=== PATIENT | female | born 1985 | race American Indian/Alaskan Native ===

== ENCOUNTER 2020-10-19 19:01 | Observation (INO) | payer SELFPAY ==
--- NOTE | 2020-10-19 19:43 | Emergency Department Report ---
ED General Adult HPI - General Chief complaint: Seizure Stated complaint: SZ PUI?: No Time Seen by Provider: 10/19/20 19:38 Source: patient, EMS (EMS documentation reviewed and appreciated), RN notes reviewed Mode of arrival: Stretcher Limitations: No Limitations - History of Present Illness Initial comments: During the history and physical examination, I am chaperoned by Ms. Fabiola Powers. The patient is a 34-year-old female. She has a history of lupus. She typically follows at [facility]. She presents to the ER today with a possible seizure. She has never had a seizure before. She reports that she started a new antibiotic treatment on September 27 for her lupus, believes that it starts with a "R", but does not recall the name of this medication specifically. She has received her Covid vaccine. She reports that today, she was starting to feel left hand and arm numbness, and twisting. Then, she blacked out. She has no recollection of the event afterwards. She has a mild headache. There is no neck pain. There is no chest pain, abdominal pain, shortness of breath, vomiting or diarrhea. No urinary symptoms. Positive nausea. No recreational drug use. She feels like she is back to her baseline. She was previously maintained on Plaquenil but not currently. Decides this no antibody treatment, whose name she cannot recall, she denies additional medications. -: Sudden Location: left, upper extremity Radiation: non-radiation Consistency: now resolved Improves with: none Worsens with: none - Related Data Home Medications Medication Instructions Recorded Confirmed Last Taken Omeprazole 40 mg PO BID 10/19/20 10/19/20 1 Day Ago ~10/18/20 Rituxan 1 1000units IV 3XW MDD pain relief 10/19/20 10/19/20 Unknown amLODIPine [Norvasc] 5 mg PO DAILY 10/19/20 10/19/20 10/19/20 07:00 5 mg azaTHIOprine [Azathioprine] 50 mg PO DAILY 10/19/20 10/19/20 10/19/20 07:00 predniSONE 10 mg PO QDAY 10/19/20 10/19/20 10/19/20 07:00 Allergies Allergy/AdvReac Type Severity Reaction Status Date / Time No Known Allergies Allergy Verified 10/19/20 19:57 ED Review of Systems ROS: Stated complaint: SZ Other details as noted in HPI Constitutional: denies: fever, malaise, weakness Eyes: denies: eye discharge, vision change ENT: denies: epistaxis Respiratory: denies: cough Cardiovascular: denies: chest pain Gastrointestinal: nausea. denies: abdominal pain Genitourinary: denies: dysuria Neurological: headache, numbness. denies: weakness Hematological/Lymphatic: denies: easy bleeding ED Past Medical Hx - Past Medical History Previous Medical History?: Yes Hx Arthritis: Yes Additional medical history: Lupus - Surgical History Past Surgical History?: No - Social History Smoking Status: Never Smoker Substance Use Type: None - Medications Home Medications: Home Medications Medication Instructions Recorded Confirmed Last Taken Type Omeprazole 40 mg PO BID 10/19/20 10/19/20 1 Day Ago History ~10/18/20 Rituxan 1 1000units IV 3XW MDD pain relief 10/19/20 10/19/20 Unknown History amLODIPine [Norvasc] 5 mg PO DAILY 10/19/20 10/19/20 10/19/20 07:00 History 5 mg azaTHIOprine [Azathioprine] 50 mg PO DAILY 10/19/20 10/19/20 10/19/20 07:00 History predniSONE 10 mg PO QDAY 10/19/20 10/19/20 10/19/20 07:00 History ED Physical Exam - General Limitations: No Limitations General appearance: alert, in no apparent distress - Head Head exam: Present: atraumatic, normocephalic - Eye Eye exam: Present: normal appearance, PERRL, EOMI, other (Visual acuity intact to finger counting, color perception, reading at a close distance) - ENT ENT exam: Present: normal exam, normal orophraynx, mucous membranes moist, normal external ear exam - Neck Neck exam: Present: normal inspection, full ROM. Absent: tenderness, meningismus - Respiratory Respiratory exam: Present: normal lung sounds bilaterally. Absent: respiratory distress, wheezes, rales, rhonchi, stridor, decreased breath sounds - Cardiovascular Cardiovascular Exam: Present: regular rate, normal rhythm, normal heart sounds. Absent: bradycardia, tachycardia, irregular rhythm, systolic murmur, diastolic murmur, rubs, gallop - GI/Abdominal GI/Abdominal exam: Present: soft. Absent: distended, tenderness, guarding, pulsatile mass - Extremities Exam Extremities exam: Present: normal inspection, full ROM, other (2+ pulses noted in the bilateral upper and lower extremities. There is no palpable cord. negative Homans sign. Muscular compartments are soft. The pelvis is stable.). Absent: pedal edema, calf tenderness - Back Exam Back exam: Present: normal inspection. Absent: tenderness, CVA tenderness (R), CVA tenderness (L), paraspinal tenderness, vertebral tenderness - Neurological Exam Neurological exam: Present: alert (There is no past-pointing. There is normal [id number]. There is no pronator drift.), oriented X3, other (No facial droop. Tongue midline. Extraocular movements intact bilaterally. Facial sensation intact to light touch in V1, V2, V3 distribution bilaterally. 5 and a 5 strength in 4 extremities. Sensation intact to light touch in 4 extremitie s.). Absent: motor sensory deficit - Psychiatric Psychiatric exam: Present: normal affect, normal mood - Skin Skin exam: Present: warm, dry, intact, normal color. Absent: rash ED Course Vital Signs 10/19/20 10/19/20 10/19/20 19:36 19:42 20:31 Temperature 99.2 F 99.2 F Pulse Rate 112 H Respiratory 20 20 Rate Blood Pressure 115/55 [Left] O2 Sat by Pulse 99 Oximetry 10/19/20 21:23 Temperature Pulse Rate 86 Respiratory 16 Rate Blood Pressure 110/62 [Left] O2 Sat by Pulse 99 Oximetry - Reevaluation(s) Reevaluation #1: 10/19/20 21:41 Differential diagnosis, including but not limited to: Seizure, TIA, sinus thrombosis, pneumonia, urinary tract infection, viral syndrome, pharyngitis Medication side effect Assessment and plan: 34-year-old female with new onset left upper extremity weakness, numbness, now resolved, and possible seizure. Patient is clinically sober at this time, with a GCS of 15, NIH score of 0, with no meningeal signs. She is awake, alert, oriented. Physical exam nondiagnostic and unremarkable. She is never had a seizure before. I requested that nursing team reconcile home medications. Obtain noncontrast CT scan of the brain, x-ray the chest, urinalysis, rapid flu and rapid strep. States she is up-to-date with COVID-19 vaccination. Obtain neurology consultation. Given NIH score of 0, GCS of 15, large vessel occlusion is very unlikely, emergent CT angiogram head and neck not indicated. Given NIH score of 0, TPA not necessary, patient back to her neurologic baseline. Hold systemic anticoagulation and AED/anticonvulsants at this time. I have discussed the patient's history, physical, laboratory studies, imaging studies, and overall clinical impression with neurology on-call, Dr. Arelis Bowen Urgent inpatient MRI brain, with and without contrast, routine EEG, inpatient work-up recommended, he is in agreement with the plan of care. I have discussed the plan of care with the patient, who has articulated understanding, and who is amenable to this plan of care. Admit this patient to the medical service once initial diagnostics have resulted. No meningeal signs, not encephalopathic, lupus cerebritis, encephalitis is very unlikely. 10/19/20 21:45 10/19/20 22:22 lab studies essentially unremarkable. CT scan of the brain nonspecific. No obvious bleed is noted. Patient to be admitted to the medical service under the care of Durga Maya, working with Dr Vishnu Mari ED Medical Decision Making - Lab Data Result diagrams: 10/19/20 19:51 10/19/20 19:51 Vital Signs 10/19/20 10/19/20 10/19/20 19:36 19:42 20:31 Temperature 99.2 F 99.2 F Pulse Rate 112 H Respiratory 20 20 Rate Blood Pressure 115/55 [Left] O2 Sat by Pulse 99 Oximetry 10/19/20 21:23 Temperature Pulse Rate 86 Respiratory 16 Rate Blood Pressure 110/62 [Left] O2 Sat by Pulse 99 Oximetry Lab Results 10/19/20 10/19/20 10/19/20 Range/Units 19:51 19:51 19:51 WBC 7.2 (4.5-11.0) K/mm3 RBC 3.86 (3.65-5.03) M/mm3 Hgb 10.1 (10.1-14.3) gm/dl Hct 32.4 (30.3-42.9) % MCV 84 (79-97) fl MCH 26 L (28-32) pg MCHC 31 (30-34) % RDW 18.1 H (13.2-15.2) % Plt Count 475 H (140-440) K/mm3 Lymph % (Auto) 4.1 L (13.4-35.0) % [place] % (Auto) 4.7 (0.0-7.3) % Eos % (Auto) 2.8 (0.0-4.3) % Baso % (Auto) 1.2 (0.0-1.8) % Lymph # (Auto) 0.3 L (1.2-5.4) K/mm3 [place] # (Auto) 0.3 (0.0-0.8) K/mm3 Eos # (Auto) 0.2 (0.0-0.4) K/mm3 Baso # (Auto) 0.1 (0.0-0.1) K/mm3 Seg Neutrophils % 87.2 H (40.0-70.0) % Seg Neutrophils # 6.3 (1.8-7.7) K/mm3 PT 13.8 (12.2-14.9) Sec. INR 1.01 (0.87-1.13) Sodium 136 L (137-145) mmol/L Potassium 4.2 (3.6-5.0) mmol/L Chloride 100.2 (98-107) mmol/L Carbon Dioxide 25 (22-30) mmol/L Anion Gap 15 mmol/L BUN 9 (7-17) mg/dL Creatinine 0.6 (0.6-1.2) mg/dL Estimated GFR > 60 ml/min BUN/Creatinine Ratio 15 % Glucose 72 (65-100) mg/dL Calcium 8.6 (8.4-10.2) mg/dL Magnesium (1.7-2.3) mg/dL Total Bilirubin 0.20 (0.1-1.2) mg/dL AST 37 (5-40) units/L ALT 10 (7-56) units/L Alkaline Phosphatase 63 (35-129) units/L Total Creatine Kinase (30-135) units/L Total Protein 7.2 (6.3-8.2) g/dL Albumin 3.3 L (3.9-5) g/dL Albumin/Globulin Ratio 0.8 % HCG, Quant (0-4) mIU/mL Urine Color (Yellow) Urine Turbidity (Clear) Urine pH (5.0-7.0) Ur Specific [place] (1.003-1.030) Urine Protein (Negative) mg/dL Urine Glucose (UA) (Negative) mg/dL Urine Ketones (Negative) mg/dL Urine Blood (Negative) Urine Nitrite (Negative) Urine Bilirubin (Negative) Urine Urobilinogen (<2.0) mg/dL Ur Leukocyte Esterase (Negative) Urine WBC (Auto) (0.0-6.0) /HPF Urine RBC (Auto) (0.0-6.0) /HPF U Epithel Cells (Auto) (0-13.0) /HPF Urine Mucus /HPF Salicylates (2.8-20.0) mg/dL Urine Opiates Screen Urine Methadone Screen Acetaminophen (10.0-30.0) ug/mL Ur Barbiturates Screen Ur Phencyclidine Scrn Ur Amphetamines Screen U Benzodiazepines Scrn Urine Cocaine Screen U Marijuana (THC) Screen Plasma/Serum Alcohol (0-0.07) % 10/19/20 10/19/20 10/19/20 Range/Units 19:51 19:51 19:51 WBC (4.5-11.0) K/mm3 RBC (3.65-5.03) M/mm3 Hgb (10.1-14.3) gm/dl Hct (30.3-42.9) % MCV (79-97) fl MCH (28-32) pg MCHC (30-34) % RDW (13.2-15.2) % Plt Count (140-440) K/mm3 Lymph % (Auto) (13.4-35.0) % [place] % (Auto) (0.0-7.3) % Eos % (Auto) (0.0-4.3) % Baso % (Auto) (0.0-1.8) % Lymph # (Auto) (1.2-5.4) K/mm3 [place] # (Auto) (0.0-0.8) K/mm3 Eos # (Auto) (0.0-0.4) K/mm3 Baso # (Auto) (0.0-0.1) K/mm3 Seg Neutrophils % (40.0-70.0) % Seg Neutrophils # (1.8-7.7) K/mm3 PT (12.2-14.9) Sec. INR (0.87-1.13) Sodium (137-145) mmol/L Potassium (3.6-5.0) mmol/L Chloride (98-107) mmol/L Carbon Dioxide (22-30) mmol/L Anion Gap mmol/L BUN (7-17) mg/dL Creatinine (0.6-1.2) mg/dL Estimated GFR ml/min BUN/Creatinine Ratio % Glucose (65-100) mg/dL Calcium (8.4-10.2) mg/dL Magnesium 2.00 (1.7-2.3) mg/dL Total Bilirubin (0.1-1.2) mg/dL AST (5-40) units/L ALT (7-56) units/L Alkaline Phosphatase (35-129) units/L Total Creatine Kinase 133 (30-135) units/L Total Protein (6.3-8.2) g/dL Albumin (3.9-5) g/dL Albumin/Globulin Ratio % HCG, Quant < 2 (0-4) mIU/mL Urine Color (Yellow) Urine Turbidity (Clear) Urine pH (5.0-7.0) Ur Specific [place] (1.003-1.030) Urine Protein (Negative) mg/dL Urine Glucose (UA) (Negative) mg/dL Urine Ketones (Negative) mg/dL Urine Blood (Negative) Urine Nitrite (Negative) Urine Bilirubin (Negative) Urine Urobilinogen (<2.0) mg/dL Ur Leukocyte Esterase (Negative) Urine WBC (Auto) (0.0-6.0) /HPF Urine RBC (Auto) (0.0-6.0) /HPF U Epithel Cells (Auto) (0-13.0) /HPF Urine Mucus /HPF Salicylates < 0.3 L (2.8-20.0) mg/dL Urine Opiates Screen Urine Methadone Screen Acetaminophen (10.0-30.0) ug/mL Ur Barbiturates Screen Ur Phencyclidine Scrn Ur Amphetamines Screen U Benzodiazepines Scrn Urine Cocaine Screen U Marijuana (THC) Screen Plasma/Serum Alcohol (0-0.07) % 10/19/20 10/19/20 10/19/20 Range/Units 19:51 19:51 Unknown WBC (4.5-11.0) K/mm3 RBC (3.65-5.03) M/mm3 Hgb (10.1-14.3) gm/dl Hct (30.3-42.9) % MCV (79-97) fl MCH (28-32) pg MCHC (30-34) % RDW (13.2-15.2) % Plt Count (140-440) K/mm3 Lymph % (Auto) (13.4-35.0) % [place] % (Auto) (0.0-7.3) % Eos % (Auto) (0.0-4.3) % Baso % (Auto) (0.0-1.8) % Lymph # (Auto) (1.2-5.4) K/mm3 [place] # (Auto) (0.0-0.8) K/mm3 Eos # (Auto) (0.0-0.4) K/mm3 Baso # (Auto) (0.0-0.1) K/mm3 Seg Neutrophils % (40.0-70.0) % Seg Neutrophils # (1.8-7.7) K/mm3 PT (12.2-14.9) Sec. INR (0.87-1.13) Sodium (137-145) mmol/L Potassium (3.6-5.0) mmol/L Chloride (98-107) mmol/L Carbon Dioxide (22-30) mmol/L Anion Gap mmol/L BUN (7-17) mg/dL Creatinine (0.6-1.2) mg/dL Estimated GFR ml/min BUN/Creatinine Ratio % Glucose (65-100) mg/dL Calcium (8.4-10.2) mg/dL Magnesium (1.7-2.3) mg/dL Total Bilirubin (0.1-1.2) mg/dL AST (5-40) units/L ALT (7-56) units/L Alkaline Phosphatase (35-129) units/L Total Creatine Kinase (30-135) units/L Total Protein (6.3-8.2) g/dL Albumin (3.9-5) g/dL Albumin/Globulin Ratio % HCG, Quant (0-4) mIU/mL Urine Color Yellow (Yellow) Urine Turbidity Hazy (Clear) Urine pH 5.0 (5.0-7.0) Ur Specific [place] 1.021 (1.003-1.030) Urine Protein 100 mg/dl (Negative) mg/dL Urine Glucose (UA) Neg (Negative) mg/dL Urine Ketones Neg (Negative) mg/dL Urine Blood Neg (Negative) Urine Nitrite Neg (Negative) Urine Bilirubin Neg (Negative) Urine Urobilinogen 4.0 (<2.0) mg/dL Ur Leukocyte Esterase Neg (Negative) Urine WBC (Auto) 5.0 (0.0-6.0) /HPF Urine RBC (Auto) 4.0 (0.0-6.0) /HPF U Epithel Cells (Auto) 5.0 (0-13.0) /HPF Urine Mucus 3+ /HPF Salicylates (2.8-20.0) mg/dL Urine Opiates Screen Urine Methadone Screen Acetaminophen 5.0 L (10.0-30.0) ug/mL Ur Barbiturates Screen Ur Phencyclidine Scrn Ur Amphetamines Screen U Benzodiazepines Scrn Urine Cocaine Screen U Marijuana (THC) Screen Plasma/Serum Alcohol < 0.01 (0-0.07) % 10/19/20 Range/Units Unknown WBC (4.5-11.0) K/mm3 RBC (3.65-5.03) M/mm3 Hgb (10.1-14.3) gm/dl Hct (30.3-42.9) % MCV (79-97) fl MCH (28-32) pg MCHC (30-34) % RDW (13.2-15.2) % Plt Count (140-440) K/mm3 Lymph % (Auto) (13.4-35.0) % [place] % (Auto) (0.0-7.3) % Eos % (Auto) (0.0-4.3) % Baso % (Auto) (0.0-1.8) % Lymph # (Auto) (1.2-5.4) K/mm3 [place] # (Auto) (0.0-0.8) K/mm3 Eos # (Auto) (0.0-0.4) K/mm3 Baso # (Auto) (0.0-0.1) K/mm3 Seg Neutrophils % (40.0-70.0) % Seg Neutrophils # (1.8-7.7) K/mm3 PT (12.2-14.9) Sec. INR (0.87-1.13) Sodium (137-145) mmol/L Potassium (3.6-5.0) mmol/L Chloride (98-107) mmol/L Carbon Dioxide (22-30) mmol/L Anion Gap mmol/L BUN (7-17) mg/dL Creatinine (0.6-1.2) mg/dL Estimated GFR ml/min BUN/Creatinine Ratio % Glucose (65-100) mg/dL Calcium (8.4-10.2) mg/dL Magnesium (1.7-2.3) mg/dL Total Bilirubin (0.1-1.2) mg/dL AST (5-40) units/L ALT (7-56) units/L Alkaline Phosphatase (35-129) units/L Total Creatine Kinase (30-135) units/L Total Protein (6.3-8.2) g/dL Albumin (3.9-5) g/dL Albumin/Globulin Ratio % HCG, Quant (0-4) mIU/mL Urine Color (Yellow) Urine Turbidity (Clear) Urine pH (5.0-7.0) Ur Specific [place] (1.003-1.030) Urine Protein (Negative) mg/dL Urine Glucose (UA) (Negative) mg/dL Urine Ketones (Negative) mg/dL Urine Blood (Negative) Urine Nitrite (Negative) Urine Bilirubin (Negative) Urine Urobilinogen (<2.0) mg/dL Ur Leukocyte Esterase (Negative) Urine WBC (Auto) (0.0-6.0) /HPF Urine RBC (Auto) (0.0-6.0) /HPF U Epithel Cells (Auto) (0-13.0) /HPF Urine Mucus /HPF Salicylates (2.8-20.0) mg/dL Urine Opiates Screen Negative Urine Methadone Screen Negative Acetaminophen (10.0-30.0) ug/mL Ur Barbiturates Screen Negative Ur Phencyclidine Scrn Negative Ur Amphetamines Screen Negative U Benzodiazepines Scrn Negative Urine Cocaine Screen Negative U Marijuana (THC) Screen Negative Plasma/Serum Alcohol (0-0.07) % - EKG Data -: EKG Interpreted by Mo EKG shows normal: sinus rhythm Rate: normal - EKG Data 10/19/20 21:40 The EKG today is interpreted at 20: 59 Sinus rhythm, 89 bpm. Normal axis, normal intervals, borderline poor R wave progression. Abnormal EKG. Not a STEMI. There is no prior for comparison. This EKG is not a STEMI. - Radiology Data Radiology results: pending, report reviewed, image reviewed CT head/brain wo con INDICATION: Lupus, first lifetime seizure vs convulsion. TECHNIQUE: Routine CT head. All CT scans at this location are performed using CT dose reduction for ALARA by means of automated exposure control. COMPARISON: None. FINDINGS: Intracranial: Small region of hypoattenuation seen in the right frontal lobe on image 24 series 2. There appears to be associated [place]- white matter differentiation loss such as sagittal image 17 of series 602. No intracranial hemorrhage. No extra axial collection. No hydrocephalus. No herniation. Sinuses: Paranasal sinuses and mastoid air cells are essentially clear. Orbits: Globes are intact. Calvarium: No acute fracture. IMPRESSION: 1. Nonspecific region of hypoattenuation in the right frontal lobe which is favored to represent an acute infarction given patient's history of lupus. Recommend MRI with and without contrast for further evaluation. I informed Dr. Bray at 9:10 Signer Name: Jeronimo Liriano MD Signed: 10/19/2020 9:14 PM Workstation Name: [id number] Critical care attestation.: If time is entered above; I have spent that time in minutes in the direct care of this critically ill patient, excluding procedure time. ED Disposition Clinical Impression: History of lupus, History of convulsions Disposition: OP ADMIT IP TO THIS HOSP Is pt being admited?: Yes Does the pt Need Aspirin: No Condition: Stable Referrals: PRIMARY CARE, [Primary Care Provider] - 3-5 Days
[2020-10-19] MEDS ORDERED: LACTATED RINGERS 1,000 ML IV ONE (20:03)
[2020-10-19] MEDS ORDERED: METOCLOPRAMIDE 10 MG/2 ML INJ IV ONE (20:03)
[2020-10-19] MEDS ORDERED: diphenhydrAMINE 50 MG/ML VIAL IV ONE (20:03)
[2020-10-19] MEDS ORDERED: ACETAMINOPHEN 500 MG TAB PO ONE (20:03)
[2020-10-19 20:43] LABS: Bilirubin,Urine NEG (Negative); Blood,Urine NEG (Negative); Color,Urine Yellow (Yellow); Mucus,Urine 3+ /HPF
[2020-10-19 20:50] LABS: Basophils # (Auto) 0.1 K/mm3 (0.0-0.1); Basophils % (Auto) 1.2 % (0.0-1.8); Eosinophils # (Auto) 0.2 K/mm3 (0.0-0.4); Eosinophils % (Auto) 2.8 % (0.0-4.3); Hematocrit 32.4 % (30.3-42.9); Hemoglobin 10.1 gm/dl (10.1-14.3); Lymphocytes # (Auto) 0.3 K/mm3 (1.2-5.4); Lymphocytes % (Auto) 4.1 % (13.4-35.0); Mean Corpuscular HGB Conc 31 % (30-34); Mean Corpuscular Volume 84 fl (79-97); Monocytes # (Auto) 0.3 K/mm3 (0.0-0.8); Monocytes % (Auto) 4.7 % (0.0-7.3); Platelet Count 475 K/mm3 (140-440); Red Blood Count 3.86 M/mm3 (3.65-5.03); Red Cell Distribution Width 18.1 % (13.2-15.2)
[2020-10-19 20:57] LABS: INR 1.01 (0.87-1.13)
[2020-10-19 20:58] LABS: Amphetamine Screen,Urine Negative; Benzodiazepines Screen,Urine Negative; Cannabinoid Screen,Urine Negative; Cocaine Screen,Urine Negative; Methadone Screen,Urine Negative; Opiate Screen,Urine Negative
[2020-10-19 21:12] LABS: Alanine Aminotransferase 10 units/L (7-56); Albumin 3.3 g/dL (3.9-5); Blood Urea Nitrogen 9 mg/dL (7-17); Calcium 8.6 mg/dL (8.4-10.2); Hemolysis Index 6
[2020-10-19 21:18] LABS: BUN/Creatinine Ratio 15
--- NOTE | 2020-10-19 22:10 | Consultation ---
History of Present Illness History of present illness: [facility] Consult Note # Demographics Consult Type: General Neurology Patient Location: Emergency Room First Name: Radha Last Name: Sushant Date of : 1985 Age: 34 Gender: Female Time of Initial Page (Eastern Time): 10/19/2020, 21:39 Time of Return Call ( Time): 10/19/2020, 21:42 # HPI History: 34 year-old female presents with a new onset seizure. Afterward, she had numbness and weakness in her left arm that resolved prior to arrival. # Exam Vitals: vital signs reviewed # [id number]-SH Past Medical History: lupus # Assessment Impression: New onset seizure with transient left arm weakness and numbness # Plan Imaging: (urgency: STAT): CT Head without contrast Imaging: (urgency: routine): MRI Brain with AND without contrast Diagnostic Test: EEG Other: telemetry monitoring seizure precautions I have discussed my recommendations with the referring provider Disposition: admit Medications and Allergies Allergies Allergy/AdvReac Type Severity Reaction Status Date / Time No Known Allergies Allergy Verified 10/19/20 19:57 Home Medications Medication Instructions Recorded Confirmed Last Taken Type Omeprazole 40 mg PO BID 10/19/20 10/19/20 1 Day Ago History ~10/18/20 Rituxan 1 1000units IV 3XW MDD pain relief 10/19/20 10/19/20 Unknown History amLODIPine [Norvasc] 5 mg PO DAILY 10/19/20 10/19/20 10/19/20 07:00 History 5 mg azaTHIOprine [Azathioprine] 50 mg PO DAILY 10/19/20 10/19/20 10/19/20 07:00 History predniSONE 10 mg PO QDAY 10/19/20 10/19/20 10/19/20 07:00 History Physical Examination - Vital Signs Vital Signs: Vital Signs Temp 99.2 F 10/19/20 19:36 Results - Laboratory Findings CBC and BMP: 10/19/20 19:51 10/19/20 19:51 Abnormal Lab Findings: Abnormal Labs 10/19/20 10/19/20 10/19/20 19:51 19:51 19:51 MCH 26 L RDW 18.1 H Plt Count 475 H Lymph % (Auto) 4.1 L Lymph # (Auto) 0.3 L Seg Neutrophils % 87.2 H Sodium 136 L Albumin 3.3 L Salicylates < 0.3 L Acetaminophen 10/19/20 19:51 MCH RDW Plt Count Lymph % (Auto) Lymph # (Auto) Seg Neutrophils % Sodium Albumin Salicylates Acetaminophen 5.0 L
--- NOTE | 2020-10-19 22:18 | Cat Scan Report ---
CT head/brain wo con INDICATION: Lupus, first lifetime seizure vs convulsion. TECHNIQUE: Routine CT head. All CT scans at this location are performed using CT dose reduction for A JORGE by means of automated exposure control. COMPARISON: None. FINDINGS: Intracranial: Small region of hypoattenuation seen in the right frontal lobe on image 24 series 2. Th ere appears to be associated [place]-white matter differentiation loss such as sagittal image 17 of seri es 602. No intracranial hemorrhage. No extra axial collection. No hydrocephalus. No herniation. Sinuses: Paranasal sinuses and mastoid air cells are essentially clear. Orbits: Globes are intact. Calvarium: No acute fracture. IMPRESSION: 1. Nonspecific region of hypoattenuation in the right frontal lobe which is favored to represent an acute infarction given patient's history of lupus. Recommend MRI with and without contrast for furthe r evaluation. I informed Dr. Bray at 9:10 Signer Name: Jeronimo Liriano MD Signed: 10/19/2020 10:14 PM Workstation Name: [id number]
[2020-10-19] MEDS ORDERED: ASPIRIN 81 MG TAB CHEW PO ONE (22:23)
[2020-10-19] MEDS ORDERED: levETIRAcetam 500 MG in DEXTROSE 5% IN WATER 100 ML IV ONE (22:23)
[2020-10-19] MEDS ORDERED: ONDANSETRON 4 MG/2 ML INJ IV PRN (22:25)
[2020-10-19] MEDS ORDERED: NALOXONE 0.4 MG/1 ML INJ IV PRN (22:25)
[2020-10-19] MEDS ORDERED: HYDROmorphone 1 MG/1 ML INJ IV PRN (22:25)
[2020-10-19] MEDS ORDERED: oxyCODONE /ACETAMINOPHEN 5-325MG TAB PO PRN (22:25)
[2020-10-19] MEDS ORDERED: ACETAMINOPHEN 325 MG TAB PO PRN (22:25)
--- NOTE | 2020-10-19 23:03 | History and Physical Report ---
History of Present Illness Date of examination: 10/19/20 Date of admission: 10/19/20 22:23 Chief complaint: Left upper extremity numbness, and weakness History of present illness: 34-year-old -Norwegian female with history of GERD, hypertension, and lupus who presents [facility] ED with complaints of left upper extremity numbness and weakness. Patient states that she was at the table preparing for dinner, when her hand felt numb and weak, was unable to move left upper extremity, followed loss of consciousness. She does not recall passing out and falling to the ground, however this was confirmed by her children. Endorses mild generalized headache, decreased appetite and nausea. Patient states she received Covid vaccine. Denies head injury/trauma, history of seizure, shortness of breath, chest pain, palpitations, peripheral edema, history of heart failure, or recent sick contacts. Past History Past Medical History: GERD, hypertension, other ([place]) Past Surgical History: (X3) Social history: single, lives with family Family history: diabetes, other (Lupus: aunt x2, cousin) Medications and Allergies Allergies Allergy/AdvReac Type Severity Reaction Status Date / Time No Known Allergies Allergy Verified 10/19/20 22:24 Home Medications Medication Instructions Recorded Confirmed Last Taken Type Omeprazole 40 mg PO BID 10/19/20 10/19/20 1 Day Ago History ~10/18/20 Rituxan 1 1000units IV 3XW MDD pain relief 10/19/20 10/19/20 Unknown History amLODIPine [Norvasc] 5 mg PO DAILY 10/19/20 10/19/20 10/19/20 07:00 History 5 mg azaTHIOprine [Azathioprine] 50 mg PO DAILY 10/19/20 10/19/20 10/19/20 07:00 History predniSONE 10 mg PO QDAY 10/19/20 10/19/20 10/19/20 07:00 History Active Meds: Active Medications Acetaminophen (Acetaminophen 325 Mg Tab) 650 mg PO Q4H PRN PRN Reason: Pain MILD(1-3)/Fever >100.5/CARTAGENA Amlodipine Besylate (Amlodipine 5 Mg Tab) 5 mg PO DAILY ROBSON Aspirin (Aspirin Ec 325 Mg Tab) 325 mg PO QDAY ROBSON Atorvastatin Calcium (Atorvastatin 40 Mg Tab) 40 mg PO QHS RO[place]ON Azathioprine (Azathioprine 50 Mg Tab) 50 mg PO DAILY ROBSON Docusate Sodium (Docusate Sodium 100 Mg Cap) 100 mg PO BID COUNT INCLUDES THE [facility] Enoxaparin Sodium (Enoxaparin 40 Mg/0.4 Ml Inj) 40 mg SUB-Q QDAY ROBSON Hydromorphone HCl (Hydromorphone 1 Mg/1 Ml Inj) 0.5 mg IV Q3H PRN PRN Reason: Pain , Severe (7-10) Levetiracetam 500 mg/ Dextrose 105 mls @ 400 mls/hr IV Q12HR ROBSON Naloxone HCl (Naloxone 0.4 Mg/1 Ml Inj) 0.1 mg IV Q2MIN PRN PRN Reason: Res Rate </= 8 or 02 SAT < 92% Ondansetron HCl (Ondansetron 4 Mg/2 Ml Inj) 4 mg IV Q6H PRN PRN Reason: Nausea And Vomiting Oxycodone/Acetaminophen (Oxycodone /Acetaminophen 5-325mg Tab) 1 tab PO Q6H PRN PRN Reason: Pain, Moderate (4-6) Pantoprazole Sodium (Pantoprazole 40 Mg Tab) 40 mg PO BID ROBSON Sodium Chloride (Sodium Chloride 0.9% 10 Ml Flush Syringe) 10 ml IV BID ROBSON Sodium Chloride (Sodium Chloride 0.9% 10 Ml Flush Syringe) 10 ml IV PRN PRN PRN Reason: LINE FLUSH Review of Systems All systems: negative (As noted in HPI) Exam - Physical Exam Narrative exam: Physical exam General appearance: Present: No acute distress, alert and oriented 3, adult - EENT Eyes: Present: PERRL, EOM intact ENT: hearing intact, normal dentition - Neck Neck: Present: supple, normal ROM - Respiratory Respiratory effort: Non-labored Respiratory: Clear throughout - Cardiovascular Heart rate: 89(bpm) Rhythm: Sinus Heart Sounds: Present: S1 & S2. Absent: rub, click - Extremities Extremities: no ischemia, pulses intact, - Peripheral Assessment Peripheral Pulses: within normal limits - Abdominal General gastrointestinal: soft, non-tender, normal bowel sounds - Integumentary Integumentary: Present: warm, dry - Musculoskeletal Musculoskeletal: Able to move all extremities, able to move against resistance and gravity in extremities x4, 5/5 strength -Neurological Neurological: CN II-XII intact - Psychiatric Psychiatric: cooperative - Constitutional Vitals: Temp Pulse Resp BP Pulse Ox 99.2 F 91 H 18 123/64 98 10/19/20 19:42 10/19/20 22:48 10/19/20 22:48 10/19/20 22:48 10/19/20 22:48 Results - Labs CBC & Chem 7: 10/19/20 19:51 10/19/20 19:51 Labs: Laboratory Last Values WBC 7.2 K/mm3 (4.5-11.0) 10/19/20 19:51 RBC 3.86 M/mm3 (3.65-5.03) 10/19/20 19:51 Hgb 10.1 gm/dl (10.1-14.3) 10/19/20 19:51 Hct 32.4 % (30.3-42.9) 10/19/20 19:51 MCV 84 fl (79-97) 10/19/20 19:51 MCH 26 pg (28-32) L 10/19/20 19:51 MCHC 31 % (30-34) 10/19/20 19:51 RDW 18.1 % (13.2-15.2) H 10/19/20 19:51 Plt Count 475 K/mm3 (140-440) H 10/19/20 19:51 Lymph % (Auto) 4.1 % (13.4-35.0) L 10/19/20 19:51 [place] % (Auto) 4.7 % (0.0-7.3) 10/19/20 19:51 Eos % (Auto) 2.8 % (0.0-4.3) 10/19/20 19:51 Baso % (Auto) 1.2 % (0.0-1.8) 10/19/20 19:51 Lymph # (Auto) 0.3 K/mm3 (1.2-5.4) L 10/19/20 19:51 [place] # (Auto) 0.3 K/mm3 (0.0-0.8) 10/19/20 19:51 Eos # (Auto) 0.2 K/mm3 (0.0-0.4) 10/19/20 19:51 Baso # (Auto) 0.1 K/mm3 (0.0-0.1) 10/19/20 19:51 Seg Neutrophils % 87.2 % (40.0-70.0) H 10/19/20 19:51 Seg Neutrophils # 6.3 K/mm3 (1.8-7.7) 10/19/20 19:51 PT 13.8 Sec. (12.2-14.9) 10/19/20 19:51 INR 1.01 (0.87-1.13) 10/19/20 19:51 Sodium 136 mmol/L (137-145) L 10/19/20 19:51 Potassium 4.2 mmol/L (3.6-5.0) 10/19/20 19:51 Chloride 100.2 mmol/L (98-107) 10/19/20 19:51 Carbon Dioxide 25 mmol/L (22-30) 10/19/20 19:51 Anion Gap 15 mmol/L 10/19/20 19:51 BUN 9 mg/dL (7-17) 10/19/20 19:51 Creatinine 0.6 mg/dL (0.6-1.2) 10/19/20 19:51 Estimated GFR > 60 ml/min 10/19/20 19:51 BUN/Creatinine Ratio 15 % 10/19/20 19:51 Glucose 72 mg/dL (65-100) 10/19/20 19:51 Calcium 8.6 mg/dL (8.4-10.2) 10/19/20 19:51 Magnesium 2.00 mg/dL (1.7-2.3) 10/19/20 19:51 Total Bilirubin 0.20 mg/dL (0.1-1.2) 10/19/20 19:51 AST 37 units/L (5-40) 10/19/20 19:51 ALT 10 units/L (7-56) 10/19/20 19:51 Alkaline Phosphatase 63 units/L (35-129) 10/19/20 19:51 Total Creatine Kinase 133 units/L (30-135) 10/19/20 19:51 Total Protein 7.2 g/dL (6.3-8.2) 10/19/20 19:51 Albumin 3.3 g/dL (3.9-5) L 10/19/20 19:51 Albumin/Globulin Ratio 0.8 % 10/19/20 19:51 HCG, Quant < 2 mIU/mL (0-4) 10/19/20 19:51 Urine Color Yellow (Yellow) 10/19/20 Unknown Urine Turbidity Hazy (Clear) 10/19/20 Unknown Urine pH 5.0 (5.0-7.0) 10/19/20 Unknown Ur Specific [place] 1.021 (1.003-1.030) 10/19/20 Unknown Urine Protein 100 mg/dl mg/dL (Negative) 10/19/20 Unknown Urine Glucose (UA) Neg mg/dL (Negative) 10/19/20 Unknown Urine Ketones Neg mg/dL (Negative) 10/19/20 Unknown Urine Blood Neg (Negative) 10/19/20 Unknown Urine Nitrite Neg (Negative) 10/19/20 Unknown Urine Bilirubin Neg (Negative) 10/19/20 Unknown Urine Urobilinogen 4.0 mg/dL (<2.0) 10/19/20 Unknown Ur Leukocyte Esterase Neg (Negative) 10/19/20 Unknown Urine WBC (Auto) 5.0 /HPF (0.0-6.0) 10/19/20 Unknown Urine RBC (Auto) 4.0 /HPF (0.0-6.0) 10/19/20 Unknown U Epithel Cells (Auto) 5.0 /HPF (0-13.0) 10/19/20 Unknown Urine Mucus 3+ /HPF 10/19/20 Unknown Salicylates < 0.3 mg/dL (2.8-20.0) L 10/19/20 19:51 Urine Opiates Screen Negative 10/19/20 Unknown Urine Methadone Screen Negative 10/19/20 Unknown Acetaminophen 5.0 ug/mL (10.0-30.0) L 10/19/20 19:51 Ur Barbiturates Screen Negative 10/19/20 Unknown Ur Phencyclidine Scrn Negative 10/19/20 Unknown Ur Amphetamines Screen Negative 10/19/20 Unknown U Benzodiazepines Scrn Negative 10/19/20 Unknown Urine Cocaine Screen Negative 10/19/20 Unknown U Marijuana (THC) Screen Negative 10/19/20 Unknown Drugs of Abuse Note Disclamer 10/19/20 Unknown Plasma/Serum Alcohol < 0.01 % (0-0.07) 10/19/20 19:51 Influenza A (Rapid) Negative (Negative) 10/19/20 Unknown Influenza B (Rapid) Negative (Negative) 10/19/20 Unknown Group A Strep Rapid Negative (Negative) 10/19/20 Unknown - Imaging and Cardiology Chest x-ray: pending Imaging and Cardiology: CT head: FINDINGS: Intracranial: Small region of hypoattenuation seen in the right frontal lobe on image 24 series 2. There appears to be associated arroyo-white matter differentiation loss such as sagittal image 17 of series 602. No intracranial hemorrhage. No extra axial collection. No hydrocephalus. No herniation. Sinuses: Paranasal sinuses and mastoid air cells are essentially clear. Orbits: Globes are intact. Calvarium: No acute fracture. IMPRESSION: 1. Nonspecific region of hypoattenuation in the right frontal lobe which is favored to represent an acute infarction given patient's history of lupus. Recommend MRI with and without contrast for further evaluation. Assessment and Plan Assessment and plan: New onset seizure -Complained of numbness, and weakness in left upper extremity, brief loss of consciousness, which has since resolved -Will start Keppra 500 mg twice daily -On seizure and fall precautions -EEG pending -Seen and evaluated by telemetry neurology (Dr. Lei Bowen), recs appreciated -Inpatient neurology consult pending Acute CVA -CT head reveals nonspecific region of hypoattenuation in the right frontal lobe which is favored to represent an acute infarction given patient's history of lupus -MRI brain with without contrast pending -Echo pending -Received loading dose of aspirin in ED, maintained on ASA 325 daily -Start statin -Neurochecks -PT/OT eval pending -Speech eval Pending -Lipid panel pending -Allow for permissive hypertension for the next 24 to 48 hours -Inpatient neurology consult pending History of hypertension -Monitor BP -Resume home hypertensive meds when appropriate (in 24 to 48 hours) History of lupus -Currently on Azathioprine, continue while in patient -On Rituxan antibody treatment in 2 week cycles (last round 09/27-10/11) -Follows nitrocellulose operator as outpatient Moderate to severe malnutrition -Albumin 3.3 on admission -Endorses poor oral intake due to decreased appetite " picky eater" -Nutrition consult pending History of GERD -Continue PPI DVT PPX -on Lovenox Advance Directives: No VTE prophylaxis?: Chemical, Mechanical Plan of care discussed with patient/family: Yes
[2020-10-19 23:15] LABS: Chol/HDL Ratio 4.46 %
--- NOTE | 2020-10-19 23:15 | XRay Report ---
CHEST 2 VIEWS INDICATION / CLINICAL INFORMATION: lupus sore throat, low grade fever. COMPARISON: None available. FINDINGS: SUPPORT DEVICES: None. HEART / MEDIASTINUM: No significant abnormality. LUNGS / PLEURA: There is mild increase in interstitial markings in the bases.. No pneumothorax. ADDITIONAL FINDINGS: No significant additional findings. IMPRESSION: 1. There is mild increase in interstitial markings in the lung bases which could represent mild edema , pneumonitis, or may be chronic. Signer Name: García Crowder MD Signed: 10/19/2020 11:11 PM Workstation Name: [id number]
[2020-10-20 06:47] LABS: BUN/Creatinine Ratio 12; Blood Urea Nitrogen 7 mg/dL (7-17); Calcium 8.3 mg/dL (8.4-10.2); Hemolysis Index 1
--- NOTE | 2020-10-20 08:09 | Consultation ---
History of Present Illness Consult date: 10/20/20 Reason for Consult: Seizure / Stroke Chief complaint: Passed out History of present illness: 34 yo female with lupus, htn, gerd who presents with a loss of consciousness episode with left arm numbness/weakness that resolved by the time she arrived to the ED (noted w/ BGL of 475). No incontinence or tongue bite. PATIENT IS NOT IN ROOM DURING ROUNDS, TO BE SEEN TOMORROW. Past History Past Medical History: GERD, hypertension, other (Lupus) Past Surgical History: (X3) Social history: single, lives with family Family history: diabetes, other (Lupus: aunt x2, cousin) Medications and Allergies Allergies Allergy/AdvReac Type Severity Reaction Status Date / Time No Known Allergies Allergy Verified 10/19/20 22:24 Home Medications Medication Instructions Recorded Confirmed Last Taken Type Omeprazole 40 mg PO BID 10/19/20 10/19/20 1 Day Ago History ~10/18/20 Rituxan 1 1000units IV 3XW MDD pain relief 10/19/20 10/19/20 Unknown History amLODIPine [Norvasc] 5 mg PO DAILY 10/19/20 10/19/20 10/19/20 07:00 History 5 mg azaTHIOprine [Azathioprine] 50 mg PO DAILY 10/19/20 10/19/20 10/19/20 07:00 History predniSONE 10 mg PO QDAY 10/19/20 10/19/20 10/19/20 07:00 History Active Meds: Active Medications Acetaminophen (Acetaminophen 325 Mg Tab) 650 mg PO Q4H PRN PRN Reason: Pain MILD(1-3)/Fever >100.5/CARTAGENA Aspirin (Aspirin Ec 325 Mg Tab) 325 mg PO QDAY RO[place] Atorvastatin Calcium (Atorvastatin 40 Mg Tab) 40 mg PO QHS RO[place]ON Azathioprine (Azathioprine 50 Mg Tab) 50 mg PO DAILY RO[place]ON Docusate Sodium (Docusate Sodium 100 Mg Cap) 100 mg PO BID RO[place]ON Enoxaparin Sodium (Enoxaparin 40 Mg/0.4 Ml Inj) 40 mg SUB-Q QDAY RO[place]ON Hydromorphone HCl (Hydromorphone 1 Mg/1 Ml Inj) 0.5 mg IV Q3H PRN PRN Reason: Pain , Severe (7-10) Levetiracetam 500 mg/ Dextrose 105 mls @ 400 mls/hr IV Q12HR RO[place]ON Naloxone HCl (Naloxone 0.4 Mg/1 Ml Inj) 0.1 mg IV Q2MIN PRN PRN Reason: Res Rate </= 8 or 02 SAT < 92% Ondansetron HCl (Ondansetron 4 Mg/2 Ml Inj) 4 mg IV Q6H PRN PRN Reason: Nausea And Vomiting Oxycodone/Acetaminophen (Oxycodone /Acetaminophen 5-325mg Tab) 1 tab PO Q6H PRN PRN Reason: Pain, Moderate (4-6) Pantoprazole Sodium (Pantoprazole 40 Mg Tab) 40 mg PO BID RO[place]ON Sodium Chloride (Sodium Chloride 0.9% 10 Ml Flush Syringe) 10 ml IV BID ROBSON Sodium Chloride (Sodium Chloride 0.9% 10 Ml Flush Syringe) 10 ml IV PRN PRN PRN Reason: LINE FLUSH Physical Examination - Vital Signs Vital Signs: Vital Signs Temp 99.2 F 10/19/20 19:36 - Physical Exam Narrative exam: Not in room at present. Results - Laboratory Findings CBC and BMP: 10/19/20 19:51 10/20/20 05:49 Abnormal Lab Findings: Abnormal Labs 10/19/20 10/19/20 10/19/20 19:51 19:51 19:51 MCH 26 L RDW 18.1 H Plt Count 475 H Lymph % (Auto) 4.1 L Lymph # (Auto) 0.3 L Seg Neutrophils % 87.2 H Sodium 136 L Chloride Calcium Albumin 3.3 L HDL Cholesterol Salicylates < 0.3 L Acetaminophen 10/19/20 10/19/20 10/20/20 19:51 19:51 05:49 MCH RDW Plt Count Lymph % (Auto) Lymph # (Auto) Seg Neutrophils % Sodium Chloride 107.6 H Calcium 8.3 L Albumin HDL Cholesterol 26 L Salicylates Acetaminophen 5.0 L Assessment and Plan 34 yo female with lupus, htn, gerd who presents with a loss of consciousness episode with left arm numbness/weakness that resolved by the time she arrived to the ED (noted w/ BGL of 475). Currently, she is at her baseline and denies any hx of seizures. 1. Seizure - known symptom of lupus; keppra 500 mg po bid; seizure restrictions; MRI Brain w/ wo contrast; EEG (inpatient vs. outpatient); followup with Neurology in 4 weeks. 2. Transient weakness/numbness of left arm - likely postictal phenomenon; awaiting MR Brain w/ wo contrast. 3. DM - concern is raised secondary to a BG of 475; confirm w/ A1c; aim for euglycemia. 4. HTN - aim for normotension. 5. Lupus - per primary team. PATIENT IS NOT IN ROOM, OFFICIAL CONSULT TOMORROW IN AM. Jalil Pierson MD Neurology (No charge)
[2020-10-20] MEDS ORDERED: amLODIPine 5 MG TAB PO SCH (10:00)
[2020-10-20] MEDS: azaTHIOprine 50 MG TAB PO SCH (10:46)
[2020-10-20] MEDS: PANTOPRAZOLE 40 MG TAB PO SCH ×2 (10:46→22:52)
[2020-10-20] MEDS: ASPIRIN EC 325 MG TAB PO SCH (10:46)
[2020-10-20] MEDS: DOCUSATE SODIUM 100 MG CAP PO SCH ×2 (10:46→22:52)
[2020-10-20] MEDS: ENOXAPARIN 40 MG/0.4 ML INJ SUB-Q SCH (10:47)
--- NOTE | 2020-10-20 11:07 | Magnetic Resonance Report ---
MR brain wo/w con INDICATION / CLINICAL INFORMATION: 34 years Female; acute infact, hx lupus, newonset seizure, WEAKNESS JOSE EDUARDO. EXT.. TECHNIQUE: Multiplanar, multisequence MR images of the brain were obtained. COMPARISON: None available. FINDINGS: BRAIN / INTRACRANIAL CONTENTS: There is a lesion seen in the precentral gyral region on the right jus t inferior and lateral to the hand motor region. The gyrus in this region is swollen, and there is in creased FLAIR/T2 signal. No significant enhancement is seen following contrast. The medial margins of the lesion are somewhat indistinct. This lesion measures approximately 2.2 cm in maximum dimension. Differential diagnosis might include low-grade glioma, DNET, focal cortical dysplasia, etc. Otherwise, no acute hemorrhage, mass effect, midline shift, hydrocephalus, or acute, large territori al infarct. No chronic infarct or atrophy. Minimal, nonspecific white matter disease seen posteriorly in the occipital lobes. CRANIOCERVICAL JUNCTION: No significant abnormality. VASCULAR FLOW-VOIDS: No significant abnormality. ORBITS: No significant abnormality of visualized orbits. SINUSES / MASTOIDS: Mild to moderate mucosal thickening seen in the ethmoids and sphenoid sinuses. ADDITIONAL FINDINGS: None. IMPRESSION: 1. Lesion in the posterior aspect of the right frontal lobe as described above. Signer Name: Lance Howard MD, III Signed: 10/20/2020 11:03 AM Workstation Name: [id number]
[2020-10-20] MEDS: levETIRAcetam 500 MG in DEXTROSE 5% IN WATER 100 ML IV SCH ×2 (11:59→22:52)
--- NOTE | 2020-10-20 15:08 | Progress Note ---
Assessment and Plan 34 yo female with lupus, HTN, GERD who presents with a episode of loss of consciousness and left arm numbness/weakness that resolved by the time she arrived to the ED, Neurology consulted. MRI brain suggestive for frontal lobe lesion. -- Right Frontal lobe lesion cont keppra, will start on steroid follow neurology recommendation -- Transient weakness/numbness of left arm - likely postictal phenomenon following a seizure -- DM type 2, cont SSI, consistent carb diet -- HTN - monitor BP -- Lupus - cont home meds. Patient follow-up at [place] [facility] Daily clinical course: 10/20/20: MRI brain suggestive of lesion at the posterior aspect of the right frontal lobe, cont keppra, start on steroid. follow neuro recommendation. We will also monitor the patient overnight for any possible recurrent seizure episodes Subjective Date of service: 10/20/20 Interval history: Patient seen and examined. Medical records and medication list reviewed. No acute event overnight noted by the RN. Patient denies any chest pain or difficulty breathing. Patient is tolerating diet. Discussed plan of care at bedside with patient. Objective - Exam Narrative Exam: GENERAL: well-developed and well-nourished -Cypriot female lying on bed appeared to be in no discomfort. HEENT: Normocephalic. Atraumatic. No conjunctival congestion or icterus. Patient has moist mucous membranes. NECK: Supple. Trachea midline. CHEST/LUNGS: Clear to auscultated bilaterally, breathing nonlabored. No wheezes crackles or rhonchi. HEART/CARDIOVASCULAR: Regular in rate and rhythm. S1 and S2 positive. ABDOMEN: Abdomen is soft, nontender. Patient has normal bowel sounds. SKIN: There is no rash. Warm and dry. NEURO: No focal motor deficit. Follows command. MUSCULOSKELETAL: No joint effusion or tenderness. EXTRIMITY: No edema, no cyanosis or clubbing. PSYCH: Cooperative. - Constitutional Vitals: Vital Signs - 12hr 10/20/20 10/20/20 10/20/20 04:54 07:55 08:26 Temperature 98.0 F 98.8 F Pulse Rate 69 81 81 Respiratory 16 16 Rate Blood Pressure 106/50 113/57 O2 Sat by Pulse 95 98 Oximetry 10/20/20 11:13 Temperature 97.9 F Pulse Rate 81 Respiratory 16 Rate Blood Pressure 110/61 O2 Sat by Pulse 92 Oximetry - Labs CBC & Chem 7: 07/20/21 19:51 10/20/20 05:49 Labs: Abnormal lab results 10/19/20 10/19/20 10/19/20 Range/Units 19:51 19:51 19:51 MCH 26 L (28-32) pg RDW 18.1 H (13.2-15.2) % Plt Count 475 H (140-440) K/mm3 Lymph % (Auto) 4.1 L (13.4-35.0) % Lymph # (Auto) 0.3 L (1.2-5.4) K/mm3 Seg Neutrophils % 87.2 H (40.0-70.0) % Sodium 136 L (137-145) mmol/L Chloride (98-107) mmol/L Calcium (8.4-10.2) mg/dL Albumin 3.3 L (3.9-5) g/dL HDL Cholesterol (40-59) mg/dL Salicylates < 0.3 L (2.8-20.0) mg/dL Acetaminophen (10.0-30.0) ug/mL 10/19/20 10/19/20 10/20/20 Range/Units 19:51 19:51 05:49 MCH (28-32) pg RDW (13.2-15.2) % Plt Count (140-440) K/mm3 Lymph % (Auto) (13.4-35.0) % Lymph # (Auto) (1.2-5.4) K/mm3 Seg Neutrophils % (40.0-70.0) % Sodium (137-145) mmol/L Chloride 107.6 H (98-107) mmol/L Calcium 8.3 L (8.4-10.2) mg/dL Albumin (3.9-5) g/dL HDL Cholesterol 26 L (40-59) mg/dL Salicylates (2.8-20.0) mg/dL Acetaminophen 5.0 L (10.0-30.0) ug/mL
[2020-10-20] MEDS: dexAMETHasone 4 MG/ML VIAL IV SCH (20:32)
[2020-10-21] MEDS: dexAMETHasone 4 MG/ML VIAL IV SCH ×3 (02:27→12:31)
[2020-10-21 08:46] VITALS: BP 121/64
[2020-10-21] MEDS: DOCUSATE SODIUM 100 MG CAP PO SCH (09:49)
[2020-10-21] MEDS: PANTOPRAZOLE 40 MG TAB PO SCH (09:49)
[2020-10-21] MEDS: ASPIRIN EC 325 MG TAB PO SCH (09:49)
[2020-10-21] MEDS: ENOXAPARIN 40 MG/0.4 ML INJ SUB-Q SCH (09:49)
[2020-10-21] MEDS: levETIRAcetam 500 MG in DEXTROSE 5% IN WATER 100 ML IV SCH (09:50)
[2020-10-21] MEDS: azaTHIOprine 50 MG TAB PO SCH (09:50)
--- NOTE | 2020-10-21 12:16 | Electrocardiograph Report ---
[facility] Test Date: 2020-10-19 Test Time: 20:49:24 Pat Name: MATTY HODGE Department: Room: A467 1 Gender: F Biology Department Chair: DUSTY : 1985 Requested By: MIRA PIÑA Order Number: [id number] Reading MD: Mustapha Oseguera Measurements Intervals [place] Rate: 89 P: 46 DE: 128 QRS: 53 QRSD: 90 T: 55 QT: 355 QTc: 432 Interpretive Statements Sinus rhythm No previous ECG available for comparison Electronically Signed On 10-21-2020 12:15:38 EDT by Mustapha Oseguera
--- NOTE | 2020-10-21 14:32 | Discharge Summary ---
Providers - Providers Date of Admission: 10/19/20 22:23 Date of discharge: 10/21/20 Attending physician: AMIE YOUNG 10/19/20 22:25 Consult to Physician [CONS] Routine Comment: Consulting Provider: GENESIS VALADEZ Physician Instructions: Reason For Exam: new onset seizure, ?acute infarction 10/19/20 23:02 Consult to Dietitian/Nutrition [CONS] Routine Physician Instructions: Reason For Exam: Reason for Consult: Malnutrition 10/19/20 23:14 Occupational Therapy Evaluate and Treat [CONS] Routine Comment: Reason For Exam: Neuro deficits Physical Therapy Evaluation and Treat [CONS] Routine Comment: Reason For Exam: Neuro deficits 10/21/20 14:26 Consult to Physician [CONS] Routine Reason For Exam: right frontal lobe lesion Consulting Provider: ISAAC ARREAGA II Physician Instructions: Comment: Primary care physician: RESPIRATORY TECHNICIAN Hospitalization Condition: Stable Hospital course: 34-year-old -Mosotho female with history of GERD, hypertension, and lupus who presents [facility] ED with complaints of a episode of left upper extremity numbness and weakness followed by loss of consciousness which was witnessed by her children. Patient stated that she received Covid vaccine. CT head in the ER did not show any acute process. Patient was admitted to the hospital for further evaluation and management. Neurology was consulted and patient was placed on antiseizure medications. MRI of the brain revealed 2.2 cm lesion at the posterior aspect of the right frontal lobe. Patient was then initiated on dexamethasone. I personally discussed the finding and patient's clinical presentation with the neurosurgeon Dr. Rosalio Arreaga. Dr. Arreaga recommended discharge patient home with AED per neurology recommendation and dexamethasone [address] Arreaga will follow the patient as outpatient. Discharge planning management was thoroughly discussed with the patient and she ve rbalized understanding. Patient was recommended to follow-up with Dr. Isaac Arreaga in 1 week because of her right frontal lobe lesion/possible brain tumor. Disposition: DC-01 TO HOME OR SELFCARE Final Discharge Diagnosis (Prints w/discharge instructions): -- Right Frontal lobe lesion. -- Transient weakness/numbness of left arm - likely postictal phenomenon following a seizure. -- Acute seizure, likley from brain lesion. -- DM type 2. --HTN. -- h/o lupus Time spent for discharge: 34 minutes Core Measure Documentation - Palliative Care Palliative Care/ Comfort Measures: Not Applicable - Core Measures Any of the following diagnoses?: none Exam - Physical Exam Narrative exam: GENERAL: well-developed and well-nourished -[place]osotho female lying on bed appeared to be in no discomfort. HEENT: Normocephalic. Atraumatic. No conjunctival congestion or icterus. Patient has moist mucous membranes. NECK: Supple. Trachea midline. CHEST/LUNGS: Clear to auscultated bilaterally, breathing nonlabored. No wheezes crackles or rhonchi. HEART/CARDIOVASCULAR: Regular in rate and rhythm. S1 and S2 positive. ABDOMEN: Abdomen is soft, nontender. Patient has normal bowel sounds. SKIN: There is no rash. Warm and dry. NEURO: No focal motor deficit. Follows command. MUSCULOSKELETAL: No joint effusion or tenderness. EXTRIMITY: No edema, no cyanosis or clubbing. PSYCH: Cooperative. - Constitutional Vitals: Temp Pulse Resp BP Pulse Ox 97.8 F 54 L 16 121/64 94 10/21/20 08:13 10/21/20 08:13 10/21/20 08:13 10/21/20 08:13 10/21/20 08:13 Plan Activity: advance as tolerated Weight Bearing Status: Weight Bear as Tolerated Diet: low fat, diabetic Additional Instructions: Follow-up with neurosurgeon in 1 week. No driving upto 6 months. Follow-up with neurology in 4 weeks Follow up with: PRIMARY MD [facility] [Primary Care Provider] - 3-5 Days ISAAC ARREAGA II, MD [Staff Physician] - 7 Days Prescriptions: dexAMETHasone [Dexamethasone] 4 mg PO BID #20 tablet levETIRAcetam [Keppra TAB] 500 mg PO BID #30 tablet
--- NOTE | 2020-10-21 14:42 | Consultation ---
History of Present Illness Consult date: 10/21/20 Reason for Consult: Seizure Chief complaint: Passed out History of present illness: 34 yo female with lupus, htn, gerd who presents with a loss of consciousness episode with left arm numbness/weakness (similar symptoms in the past with only numbness/tingling) that resolved by the time she arrived to the ED (noted w/ BGL of 475). No incontinence or tongue bite. Patient notes she was started on a new antibody infusion (lupus treatment; initial treatment last month)for headache and dysphagia. Patient also notes swe lling in her legs and "sore throat". Past History Past Medical History: GERD, hypertension, other (Lupus) Past Surgical History: (X3) Social history: single, lives with family Family history: diabetes, other (Lupus: aunt x2, cousin) Medications and Allergies Allergies Allergy/AdvReac Type Severity Reaction Status Date / Time No Known Allergies Allergy Verified 10/19/20 22:24 Home Medications Medication Instructions Recorded Confirmed Last Taken Type Omeprazole 40 mg PO BID 10/19/20 10/19/20 1 Day Ago History ~10/18/20 Rituxan 1 1000units IV 3XW MDD pain relief 10/19/20 10/19/20 Unknown History azaTHIOprine [Azathioprine] 50 mg PO DAILY 10/19/20 10/19/20 10/19/20 07:00 History dexAMETHasone [Dexamethasone] 4 mg PO BID #20 tablet 10/21/20 Unknown Rx levETIRAcetam [Keppra TAB] 500 mg PO BID #30 tablet 10/21/20 Unknown Rx Active Meds: Active Medications Acetaminophen (Acetaminophen 325 Mg Tab) 650 mg PO Q4H PRN PRN Reason: Pain MILD(1-3)/Fever >100.5/CARTAGENA Last Admin: 10/20/20 20:30 Dose: 650 mg Documented by: Aspirin (Aspirin Ec 325 Mg Tab) 325 mg PO QDAY [facility] Last Admin: 10/21/20 09:49 Dose: 325 mg Documented by: Atorvastatin Calcium (Atorvastatin 40 Mg Tab) 40 mg PO QHS [facility] Last Admin: 10/20/20 22:52 Dose: 40 mg Documented by: Azathioprine (Azathioprine 50 Mg Tab) 50 mg PO DAILY [facility] Last Admin: 10/21/20 09:50 Dose: 50 mg Documented by: Dexamethasone (Dexamethasone 4 Mg/Ml Vial) 4 mg IV Q6HR [facility] Last Admin: 10/21/20 12:31 Dose: 4 mg Documented by: Docusate Sodium (Docusate Sodium 100 Mg Cap) 100 mg PO BID [facility] Last Admin: 10/21/20 09:49 Dose: 100 mg Documented by: Enoxaparin Sodium (Enoxaparin 40 Mg/0.4 Ml Inj) 40 mg SUB-Q QDAY [facility] Last Admin: 10/21/20 09:49 Dose: 40 mg Documented by: Hydromorphone HCl (Hydromorphone 1 Mg/1 Ml Inj) 0.5 mg IV Q3H PRN PRN Reason: Pain , Severe (7-10) Levetiracetam 500 mg/ Dextrose 105 mls @ 400 mls/hr IV Q12HR [facility] Last Admin: 10/21/20 09:50 Dose: 400 mls/hr Documented by: Naloxone HCl (Naloxone 0.4 Mg/1 Ml Inj) 0.1 mg IV Q2MIN PRN PRN Reason: Res Rate </= 8 or 02 SAT < 92% Ondansetron HCl (Ondansetron 4 Mg/2 Ml Inj) 4 mg IV Q6H PRN PRN Reason: Nausea And Vomiting Oxycodone/Acetaminophen (Oxycodone /Acetaminophen 5-325mg Tab) 1 tab PO Q6H PRN PRN Reason: Pain, Moderate (4-6) Pantoprazole Sodium (Pantoprazole 40 Mg Tab) 40 mg PO BID [facility] Last Admin: 10/21/20 09:49 Dose: 40 mg Documented by: Sodium Chloride (Sodium Chloride 0.9% 10 Ml Flush Syringe) 10 ml IV BID [facility] Last Admin: 10/21/20 09:51 Dose: 10 ml Documented by: Sodium Chloride (Sodium Chloride 0.9% 10 Ml Flush Syringe) 10 ml IV PRN PRN PRN Reason: LINE FLUSH Review of Systems All systems: negative Physical Examination - Vital Signs Vital Signs: Vital Signs Temp 99.2 F 10/19/20 19:36 - Physical Exam Narrative exam: Gen: nad, well-nourished; Head: normocephalic; Eyes: no gaze deviation; no ptosis; ENT: normal vocalization; CVS: warm and well-perfused; Pulm: no respiratory distress; GI: appears non-distended, protuberant; Ext: no cyanosis at distal extremities; Skin: no acute rash at distal extremities; Heme: no pathologic bruising or ecchymosis at distal extremities; Neuro: alert, oriented to name, age, month, year, surroundings, no dysarthria, no aphasia, CN 2 - PERRL, visual sahni grossly intact, CN 3, 4, 6 - EOMI, CN 5 - facial sensation symmetric to light touch, CN 7 - facial movement symmetric, CN 8 - hearing grossly intact, CN 9, 10 - uvula midline, CN 11 - shrug symme tric, CN 12 - tongue midline; Motor - at least 4/5 in all exts; Sensory - light touch symmetric, Cerebellar - fnf /hts intact, Gait - deferred secondary to seizure risk; Results - Laboratory Findings CBC and BMP: 10/19/20 19:51 10/20/20 05:49 Abnormal Lab Findings: Abnormal Labs 10/19/20 10/19/20 10/19/20 19:51 19:51 19:51 MCH 26 L RDW 18.1 H Plt Count 475 H Lymph % (Auto) 4.1 L Lymph # (Auto) 0.3 L Seg Neutrophils % 87.2 H Sodium 136 L Chloride Calcium Albumin 3.3 L HDL Cholesterol Salicylates < 0.3 L Acetaminophen 10/19/20 10/19/20 10/20/20 19:51 19:51 05:49 MCH RDW Plt Count Lymph % (Auto) Lymph # (Auto) Seg Neutrophils % Sodium Chloride 107.6 H Calcium 8.3 L Albumin HDL Cholesterol 26 L Salicylates Acetaminophen 5.0 L Assessment and Plan 34 yo female with lupus, htn, gerd who presents with a loss of consciousness episode with left arm numbness/weakness that resolved by the time she arrived to the ED (noted w/ BGL of 475). Currently, she is at her baseline and denies any hx of seizures. 1. Seizure - in the setting of a right frontal lesion noted on MRI Brain w/ wo contrast with underlying lupus; keppra 500 mg po bid; seizure restrictions; EEG as outpatient; followup with Neurosurgery, Neurology, and Oncology in 4 weeks. 2. Transient weakness/numbness of left arm - likely postictal phenomenon; con firmed lesion on MR Brain w/ wo contrast. 3. DM - concern is raised secondary to a BG of 475; confirm w/ A1c; aim for euglycemia. 4. HTN - aim for normotension. 5. Lupus - per primary team. Jalil Pierson MD Neurology [id number]
== END 2020-10-21 16:54 | disposition home or self-care (01) ==
LOC: ED 19:01 → 4A 22:23
PROVIDERS: ADMIT Internal Medicine Geriatric Medicine; ATTEND Internal Medicine
DX: I63.9 Cerebral infarction, unspecified (principal); R56.9 Unspecified convulsions; I10 Essential (primary) hypertension; M32.9 Systemic lupus erythematosus, unspecified; E43 Unspecified severe protein-calorie malnutrition; K21.9 Gastro-esophageal reflux disease without esophagitis; R29.700 NIHSS score 0; Z87.898 Personal history of other specified conditions; Z87.39 Personal history of other diseases of the musculoskeletal system and connective tissue; Z68.30 Body mass index [BMI] 30.0-30.9, adult; Z98.891 History of uterine scar from previous surgery; Z79.82 Long term (current) use of aspirin; Z79.899 Other long term (current) drug therapy
CPT/HCPCS: 36415; 70450; 70553; 71046; 80048; 80053; 80061; 80307; 81001; 82550; 83735; 84702; 85025; 85610; 87116; 87400; 87430; 93005; 93306; 96365; 96366; 96372; 96375; 96376; 97162; 97165; 99285; A9270; A9575; G0378; J1100; J1200; J1650; J1953; J2765; J3246; J7120; 80320; G0480; J7500